=== PATIENT | female | born 1960 | race Caucasian/White ===

== ENCOUNTER → 2022-02-24 | Day surgery (SDC) | payer OTHER ==
[~2022-02-24] VITALS: Ht 149.9 cm; Wt 74.9 kg
[~2022-02-24] MED LIST: ADDERALL 10 MG10 MG PO; EFFEXOR XR150 MG PO; FOLIC ACID1 MG PO; MECLIZINE HCL25 MG PO; MOTRIN600 MG PO; SYNTHROID50 MCG PO; VALACYCLOVIR500 MG PO; VITAMIN D5000 UNIT PO; ZANTAC150 MG PO
[2022-02-24 09:17] LABS: HCT 39.6 % (37.0-47.0); HGB 12.6 g/dl (12.5-16.0); MCH 28.1 pg (25.0-31.0); MCHC 31.8 g/dL (32.0-36.0); MCV 88.4 fL (78.0-100.0); MPV 9.8 fL (6.0-9.5); RBC 4.48 M/uL (4.20-5.40); RDW 14.4 % (11.5-14.0); WBC 7.2 K/uL (4.0-10.5)
[2022-02-24 09:34] LABS: ALBUMIN 3.3 g/dL (3.4-5.0); BILIRUBIN - TOTAL 0.4 mg/dL (0.2-1.0); BUN/CREAT RATIO (CALC) 20.6 RATIO; CREATININE 0.63 mg/dL (0.51-0.95); GLOBULIN (CALCULATION) 3.3 g/dL; POTASSIUM 3.1 mmol/L (3.5-5.1); TOTAL PROTEIN 6.6 g/dL (6.4-8.2)
== END | disposition home or self-care (01) ==
LOC: FAS 08:50
PROVIDERS: Surgery
DX: D50.0 Iron deficiency anemia secondary to blood loss (chronic) (principal); K31.9 Disease of stomach and duodenum, unspecified; K21.00 Gastro-esophageal reflux disease with esophagitis, without bleeding; K22.2 Esophageal obstruction; K29.60 Other gastritis without bleeding; K22.10 Ulcer of esophagus without bleeding; Z98.84 Bariatric surgery status
CPT/HCPCS: 36415; 80053; J2704; J7120